=== PATIENT | male | born 1970 | race Caucasian/White ===

== ENCOUNTER 2020-10-16 02:44 | Emergency (ER) | payer OTHER ==
[~2020-10-16 02:44] MED LIST: NORCO 5-325 TA1 EACH PO; ZYRTEC10 MG PO
[2020-10-16 03:41] LABS: BASOPHIL 0.5 % (0-2); EOSINOPHIL 0.2 % (0-5); HCT 45.4 % (42.0-52.0); HGB 15.8 g/dl (13.2-18.0); LYMPHOCYTE 13.1 % (15-48); MCH 34.3 pg (25.0-31.0); MCHC 34.8 g/dL (32.0-36.0); MCV 98.5 fL (78.0-100.0); MONOCYTE 7.3 % (0-12); MPV 10.3 fL (6.0-9.5); NEUTROPHIL 78.7 % (41-80); NRBC 0; PLT 157 K/uL (150-400); RBC 4.61 M/uL (4.70-6.00); RDW 12.5 % (11.5-14.0); WBC 8.7 K/uL (4.0-10.5)
[2020-10-16 03:45] LABS: PROTHROMBIN TIME 12.5 SECONDS (11.4-13.6); PTT 26.4 SECONDS (22.2-34.7)
[2020-10-16 03:47] LABS: D-DIMER 0.32 ug/mLFEU (0.00-0.41)
[2020-10-16 04:07] LABS: PRO-BNP 119 pg/mL (<125)
[2020-10-16 04:19] LABS: ALBUMIN 4.1 g/dL (3.4-5.0); BILIRUBIN - TOTAL 0.7 mg/dL (0.2-1.0); BUN/CREAT RATIO (CALC) 11.3 RATIO; C-REACTIVE PROTEIN 0.3 mg/dL (<=0.90); CREATININE 0.71 mg/dL (0.67-1.17); GLOBULIN (CALCULATION) 3.5 g/dL; POTASSIUM 3.7 mmol/L (3.5-5.1); TOTAL PROTEIN 7.6 g/dL (6.4-8.2)
[2020-10-16] MEDS ORDERED: LOSARTAN POTASS25 MG PO (07:16)
[2020-10-16] MEDS ORDERED: COZAAR25 MG PO (07:18)
== END 2020-10-16 08:01 | disposition home or self-care (01) ==
LOC: FER 02:44
PROVIDERS: Emergency Medicine Emergency Medical Services
DX: R07.89 Other chest pain (principal); R06.02 Shortness of breath; R00.2 Palpitations; I10 Essential (primary) hypertension; F17.210 Nicotine dependence, cigarettes, uncomplicated; Z90.13 Acquired absence of bilateral breasts and nipples
CPT/HCPCS: 36415; 71045; 80053; 82728; 83615; 83880; 84484; 85025; 85379; 85610; 85730; 86140; 93005; 94664